=== PATIENT | female | born 1960 | race African-American/Black ===

== ENCOUNTER 2016-11-24 18:04 | Emergency (ER) | payer OTHER ==
[~2016-11-24] VITALS: Ht 165.1 cm; Wt 95.3 kg
[2016-11-24] MEDS ORDERED: FIORICET 50-301 EACH PO (19:20)
[2016-11-24 19:45] VITALS: BP 127/90
== END 2016-11-24 19:46 | disposition home or self-care (01) ==
LOC: RME 18:04 → EME 18:04 → RME 19:46
DX: R51 Headache (principal); Y04.8XXA Assault by other bodily force, initial encounter; Y92.120 Kitchen in nursing home as the place of occurrence of the external cause; Y07.59 Other non-family member, perpetrator of maltreatment and neglect; Y99.0 Civilian activity done for income or pay
CPT/HCPCS: 99281; 99284